=== PATIENT | female | born 1965 | race Caucasian/White ===

== ENCOUNTER 2016-09-24 08:48 | Day surgery (SDC) | payer OTHER ==
[~2016-09-24] VITALS: Ht 170.2 cm; Wt 88.1 kg
[~2016-09-24 08:48] MED LIST: LEVO-T150 MCG PO; PRAVACHOL40 MG PO; ULTRAM50 MG PO; ZESTRIL5 MG PO
[2016-09-24 09:34] VITALS: BP 164/94
[2016-09-24 15:43] VITALS: BP 142/90
[2016-09-24 16:45] VITALS: BP 131/80
[2016-09-24 18:29] VITALS: BP 149/92
[2016-09-24 20:22] VITALS: BP 161/89
== END 2016-09-24 20:37 | disposition home or self-care (01) ==
LOC: SDC
DX: M51.27 Other intervertebral disc displacement, lumbosacral region (principal); M54.17 Radiculopathy, lumbosacral region; I10 Essential (primary) hypertension; E78.5 Hyperlipidemia, unspecified; M19.90 Unspecified osteoarthritis, unspecified site
CPT/HCPCS: 72100; 76000; J0131; J0690; J1100; J1170; J2250; J2405; J2550; J2765; J2930; J3010; S0020